=== PATIENT | female | born 1955 | race Caucasian/White ===

== ENCOUNTER 2018-01-23 22:49 | Emergency (ER) | payer BC, OTHER ==
[2018-01-23] MEDS ORDERED: GI Cocktail Oral Solution 30 ML PO ONE (23:06)
--- NOTE | 2018-01-23 23:09 | EDM.PDOC ---
ED HPI GENERAL MEDICAL PROBLEM - General Chief Complaint: Chest Pain Stated Complaint: PRESSURE IN CHEST [id number] Time Seen by Provider: 01/23/18 23:06 Source of Information: Reports: Patient History Limitations: Reports: No Limitations - History of Present Illness INITIAL COMMENTS - FREE TEXT/NARRATIVE: 2 weeks h/o mid sternal chest pain constant sometimes gets worse when moves wrong. been taking NTG without relief. 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: EKG Chest Pain Score (Numeric/FACES): 6 - Related Data Allergies Allergy/AdvReac Type Severity Reaction Status Date / Time erythromycin lactobionate Allergy swelling Verified 01/23/18 23:02 [From Erythrocin] of face, throat, lips or tongue/angioedema latex Allergy Rash Verified 01/23/18 23:02 naproxen sodium [From Aleve] Allergy short of Verified 01/23/18 23:02 breath/wheezing/chest tightness mold/mildew Allergy sneezing/co Uncoded 01/23/18 23:02 ngestion Home Meds: Home Meds Aspirin [Adult Low Dose Aspirin EC] 81 mg PO DAILY 05/14/14 [History] Fish Oil/DHA/EPA [Fish Oil 1,200 MG] 1 each PO BID 05/14/14 [History] Past Medical History Cardiovascular History: Reports: Hypertension, [place], Stents, Other (See Below) Other Cardiovascular History: coronary vsospasm 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 ED EXAM, GENERAL - Physical Exam Exam: See Below Exam Limited By: No Limitations General Appearance: Alert, WD/WN, Mild Distress, Other (distraught) Ears: Hearing Grossly Normal Throat/Mouth: Normal Voice, No Airway Compromise Head: Atraumatic Neck: Normal Inspection Respiratory/Chest: Lungs Clear Cardiovascular: Regular Rate, Rhythm GI/Abdominal: Soft, Non-Tender Neurological: Alert, Oriented, Normal Cognition, Normal Gait, No Motor/Sensory Deficits Psychiatric: Flat Affect Skin Exam: Warm, Dry, Normal Color Lymphatic: No Adenopathy Course - Vital Signs Last Recorded V/S: Last Vital Signs Temp 36.8 C 03/26/18 00:27 Pulse 62 01/24/18 00:27 Resp 18 01/24/18 00:27 BP 161/78 H 01/24/18 00:27 Pulse Ox 100 01/24/18 00:27 - Orders/Labs/Meds Orders: Active Orders 24 hr Category Date Time Status EKG 12 Lead [EKG Documentation Completion] [RC] URGENT Care 01/23/18 23:03 Active Nitroglycerin/D5W [Nitroglycerin 25 MG/D5W 250 ML] Med 01/23/18 23:30 Active 25 mg in 250 ml IV TITRATE Sodium Chloride 0.9% [Normal Saline] 250 ml Med 01/24/18 00:15 Active IV ASDIRECTED Medication Orders Nitroglycerin/Dextrose (Nitroglycerin 25 Mg/D5w 250 Ml) 25 mg in 250 mls @ 6 mls/hr IV TITRATE NERY; 10 MCG/MIN PRN Reason: Protocol Last Infusion: 01/24/18 00:01 Dose: 18 mcg/min, 10.8 mls/hr Infusion: 01/23/18 23:48 Dose: 15 mcg/min, 9 mls/hr Infusion: 01/23/18 23:33 Dose: 13 mcg/min, 7.8 mls/hr Admin: 01/23/18 23:24 Dose: 10 mcg/min, 6 mls/hr Sodium Chloride (Normal Saline) 250 mls @ 50 mls/hr IV ASDIRECTED NERY Last Admin: 01/24/18 00:12 Dose: 50 mls/hr Labs: Laboratory Tests 01/23/18 01/23/18 01/23/18 Range/Units 23:05 23:05 23:05 WBC 9.1 (5.0-10.0) 10^3/uL RBC 4.54 (4.2-5.4) 10^6/uL Hgb 14.1 D (12.0-16.0) g/dL Hct 41.3 (37.0-47.0) % MCV 91.0 (80-100) fL MCH 31.1 (27.0-34.0) pg MCHC 34.1 (33.0-35.0) g/dL Plt Count 381 (150-450) 10^3/uL Neut % (Auto) 45.2 (42.2-75.2) % Lymph % (Auto) 39.8 (20.5-50.1) % [place] % (Auto) 12.7 H (2-8) % Eos % (Auto) 1.8 (1.0-3.0) % Baso % (Auto) 0.5 (0.0-1.0) % D-Dimer, Quantitative 184 (0-400) ng/mL Sodium 137 (135-145) mmol/L Potassium 4.3 (3.6-5.0) mmol/L Chloride 103 (101-111) mmol/L Carbon Dioxide 26.0 (21.0-31.0) mmol/L Anion Gap 12.3 BUN 13 (7-18) mg/dL Creatinine 0.7 (0.6-1.3) mg/dL Est Cr Clr Drug Dosing 65.64 mL/min Estimated GFR (MDRD) > 60 BUN/Creatinine Ratio 18.57 Glucose 110 H (74-105) mg/dL Calcium 9.6 (8.4-10.2) mg/dl Total Bilirubin 0.3 (0.2-1.0) mg/dL AST 21 (10-42) IU/L ALT 19 (10-60) IU/L Alkaline Phosphatase 70 (42-121) IU/L Troponin I < 0.02 (0.00-0.02) ng/ml Total Protein 7.3 (6.7-8.2) g/dl Albumin 4.0 (3.2-5.5) g/dl Globulin 3.3 Albumin/Globulin Ratio 1.21 Meds: Medications Generic Name Dose Route Start Last Admin Trade Name Freq PRN Reason Stop Dose Admin Nitroglycerin/Dextrose 25 mg in 250 mls @ 6 mls/hr 01/23/18 23:30 01/24/18 00 :01 Nitroglycerin 25 Mg/D5w 250 Ml IV 18 mcg/min TITRATE NERY 10.8 mls/hr Protocol Infusion 10 MCG/MIN Sodium Chloride 250 mls @ 50 mls/hr 01/24/18 00:15 01/24/18 00:12 Normal Saline IV 50 mls/hr ASDIRECTED NERY Administration Discontinued Medications Generic Name Dose Route Start Last Admin Trade Name Freq PRN Reason Stop Dose Admin Al Hydroxide/Mg Hydroxide 30 ml 01/23/18 23:06 01/23/18 23:15 Gi Cocktail PO 01/23/18 23:07 30 ml ONETIME ONE Administration Clonidine HCl 0.1 mg 01/23/18 23:18 01/23/18 23:29 Catapres PO 01/23/18 23:19 Not Given ONETIME ONE Lorazepam 1 mg 01/24/18 00:15 01/24/18 00:19 Ativan IVPUSH 01/24/18 00:16 1 mg ONETIME ONE Administration Lorazepam 1 mg 01/24/18 00:33 Ativan IVPUSH 01/24/18 00:34 ONETIME ONE Morphine Sulfate 2 mg 01/23/18 23:52 01/23/18 23:58 Morphine IVPUSH 01/23/18 23:53 2 mg ONETIME ONE Administration Ondansetron HCl 4 mg 01/23/18 23:52 01/23/18 23:57 Zofran IV 01/23/18 23:53 4 mg ONETIME ONE Administration - Re-Assessments/Exams Free Text/Narrative Re-Assessment/Exam: 01/23/18 23:24 s/p GI cocktail = '0' states B-mattie causes profound slow HR. 01/23/18 23:53 results discussed with pt & spouse who states they were planning to call Dr Thakur tomorrow for appt' but unable to wait any longer since it's been 2 weeks now with her pain not responding to NTG. they have no answer on why they waited so long. 01/24/18 00:[address] Cruz who kindly accepted pt. Departure - Departure Time of Disposition: 00:38 Disposition: DC/Tfer to Acute Hospital 02 Reason for Transfer *Q: Other Condition: Fair Clinical Impression: Unstable angina Hypertension Qualifiers: Hypertension type: unspecified Qualified Code(s): I10 - Essential (primary) hypertension Forms: Interfacility Transfer EMTALA - My Orders Last 24 Hours: My Active Orders 01/23/18 23:03 EKG 12 Lead [EKG Documentation Completion] [RC] URGENT 01/23/18 23:30 Nitroglycerin/D5W [Nitroglycerin 25 MG/D5W 250 ML] 25 mg in 250 ml IV TITRATE 01/24/18 00:15 Sodium Chloride 0.9% [Normal Saline] 250 ml IV ASDIRECTED - Assessment/Plan Last 24 Hours: My Active Orders 01/23/18 23:03 EKG 12 Lead [EKG Documentation Completion] [RC] URGENT 01/23/18 23:30 Nitroglycerin/D5W [Nitroglycerin 25 MG/D5W 250 ML] 25 mg in 250 ml IV TITRATE 01/24/18 00:15 Sodium Chloride 0.9% [Normal Saline] 250 ml IV ASDIRECTED
[2018-01-23] MEDS ORDERED: cloNIDine 0.1 MG Tab PO ONE (23:18)
[2018-01-23 23:30] LABS: CHLORIDE,CL 103 mmol/L (101-111); SODIUM,NA 137 mmol/L (135-145)
[2018-01-23] MEDS ORDERED: Nitroglycerin/D5W 25 MG/250 ML BOTTLE IV SCH (23:30)
[2018-01-23] MEDS ORDERED: Morphine 2 MG/ML Syringe IVPUSH ONE (23:52)
[2018-01-23] MEDS ORDERED: Ondansetron 4 MG/2 ML SDV IV ONE (23:52)
[2018-01-24] MEDS ORDERED: LORazepam 2 MG/ML Syringe IVPUSH ONE ×2 (00:15→00:33)
[2018-01-24] MEDS ORDERED: Sodium Chloride 0.9% 250 ML IV SCH (00:15)
[2018-01-24 01:05] VITALS: BP 130/67
--- NOTE | 2018-01-24 17:25 | EKG ---
01/23/2018 - MYRTLE [facility] - FINDINGS: EKG shows normal sinus rhythm with rate of 63 per minute. There is a Q wave in the anterior lead, suggestive of prior infarct. [facility] /[id number]
== END 2018-01-24 01:20 ==
LOC: DL.ED 22:49
DX: I20.0 Unstable angina (principal); I10 Essential (primary) hypertension; I25.2 Old myocardial infarction; Z88.1 Allergy status to other antibiotic agents; Z91.040 Latex allergy status; Z88.6 Allergy status to analgesic agent; Z91.048 Other nonmedicinal substance allergy status; Z79.82 Long term (current) use of aspirin
CPT/HCPCS: 36415; 71045; 80053; 84484; 85025; 85379; 93005; 96365; 96366; 96375; 99285; A9270-GY; J2060; J2270; J2405; J7050

== ENCOUNTER 2021-02-23 10:03 | Observation (INO) | payer MEDICARE, BC ==
[2021-02-23 10:55] LABS: CHLORIDE,CL 99 mmol/L (98-107); SODIUM,NA 135 mmol/L (136-145)
--- NOTE | 2021-02-23 11:50 | CR ---
PROCEDURE INFORMATION: Exam: XR Chest Exam date and time: 02/23/2021 11:06 AM Age: 65 years old Clinical indication: Chest pain TECHNIQUE: Imaging protocol: XR of the chest. Views: 1 view. COMPARISON: No relevant prior studies available. FINDINGS: Lungs: Unremarkable. No consolidation. Pleural spaces: Unremarkable. No pleural effusion. No pneumothorax. Heart/Mediastinum: Unremarkable. No cardiomegaly. Bones/joints: Unremarkable. IMPRESSION: No acute findings.
--- NOTE | 2021-02-23 12:20 | EDM.PDOC ---
Scribed by Chrissie Perez 02/23/21 1220 for Vero Alvarez NP ED HPI GENERAL MEDICAL PROBLEM - General Chief Complaint: Chest Pain Stated Complaint: HEART MONITOR ISSUES Time Seen by Provider: 02/23/21 10:19 Source of Information: Reports: Patient, RN, RN Notes Reviewed History Limitations: Reports: No Limitations - History of Present Illness INITIAL COMMENTS - FREE TEXT/NARRATIVE: Patient is a 65-year-old female who presenst to ER with complaint of chest pressure that began last week of December. States she took 3 nitro prior to arrival at ER with no relief. Patient states feeling of pounding in her chest, arms are weak, and lightheaded this morning. History of myocardial infarction in 2006. History of Prinzmetal angina, episodes happening several times a day. She has shortness of breath, chest pressure and lightheaded. No alcohol or smoking. Patient takes Lorsartan starting February 21 for blood pressure. Nitro PRN, aspirin 81mg and medical marijuana--sublingual for fibromyalgia PRN, none for days. Onset: Gradual Duration: Constant Location: Reports: Chest Quality: Reports: Ache Severity: Severe Improves with: Reports: None Worsens with: Reports: None Associated Symptoms: Reports: No Other Symptoms - Related Data Allergies Allergy/AdvReac Type Severity Reaction Status Date / Time erythromycin lactobionate Allergy swelling Verified 02/23/21 10:17 [From Erythrocin] of face, throat, lips or tongue/angioedema latex Allergy Rash Verified 02/23/21 10:17 naproxen sodium [From Aleve] Allergy short of Verified 02/23/21 10:17 breath/wheezing/chest tightness mold/mildew Allergy sneezing/co Uncoded 02/23/21 10:17 ngestion Home Meds: Home Meds Aspirin [Adult Low Dose Aspirin EC] 81 mg PO DAILY 05/14/14 [History] Fish Oil/DHA/EPA [Fish Oil 1,200 MG] 1 each PO BID 05/14/14 [History] Losartan Potassium 25 mg PO DAILY 02/23/21 [History] Medical Supply, Miscellaneous [Liqua Spen] 1 drop SL ASDIRECTED PRN 02/23/21 [History] Nitroglycerin [Nitrostat] 0.4 mg SL ASDIRECTED PRN 02/23/21 [History] Past Medical History Cardiovascular History: Reports: Hypertension, [place], Stents, Other (See Below) Other Cardiovascular History: coronary vsospasm 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 Brother has apacemaker. - Caffeine Use Caffeine Use: Reports: Coffee ED ROS GENERAL - Review of Systems Review Of Systems: Comprehensive ROS is negative, except as noted in HPI. ED EXAM, GENERAL - Physical Exam Exam: See Below Exam Limited By: No Limitations General Appearance: Anxious, Other (thin) Eye Exam: Bilateral Eye: EOMI, Normal Inspection, PERRL Ears: Normal External Exam, Normal Canal, Hearing Grossly Normal, Normal TMs Nose: Normal Inspection, Normal Mucosa, No Blood Throat/Mouth: Normal Inspection, Normal Lips, Normal Teeth, Normal Gums, Normal Oropharynx, Normal Voice, No Airway Compromise Head: Atraumatic, Normocephalic Neck: Normal Inspection, Supple, Non-Tender, Full Range of Motion Respiratory/Chest: No Respiratory Distress, Lungs Clear, Normal Breath Sounds, No Accessory Muscle Use, Chest Non-Tender Cardiovascular: Bradycardia GI/Abdominal: Normal Bowel Sounds, Soft, Non-Tender, No Organomegaly, No Distention, No Abnormal Bruit, No Mass (Female) Exam: Deferred Rectal (Female) Exam: Deferred Back Exam: Normal Inspection, Full Range of Motion, NT Extremities: Normal Inspection, Normal Range of Motion, Non-Tender, Normal Capillary Refill, No Pedal Edema Neurological: Alert, Oriented, CN II-XII Intact, Normal Cognition, Normal Gait, Normal Reflexes, No Motor/Sensory Deficits Psychiatric: Normal Affect, Normal Mood Skin Exam: Warm, Dry, Intact, Normal Color, No Rash Lymphatic: No Adenopathy #1 Interpretation EKG Date: 02/23/21 Time: 10:17 Rhythm: Other (sinus bradycardia) Rate (Beats/Min): 49 [place]: Normal P-Wave: Present QRS: Normal ST-T: Normal QT: Normal Course - Vital Signs Last Recorded V/S: Last Vital Signs Temp 97.8 F 02/23/21 10:19 Pulse 64 02/23/21 10:19 Resp 17 02/23/21 10:19 BP 149/69 H 02/23/21 10:19 Pulse Ox 100 02/23/21 10:19 - Orders/Labs/Meds Orders: Active Orders 24 hr Category Date Time Status EKG Documentation Completion [RC] STAT Care 02/23/21 10:15 Active CORONAVIRUS COVID-19 MATT [MOLEC] Stat Lab 02/23/21 11:37 Received UA W/VENKAT RFLX IF INDICATED [URIN] Stat Lab 02/23/21 10:16 Ordered Labs: Laboratory Tests 02/23/21 02/23/21 02/23/21 Range/Units 10:29 10:29 10:29 WBC 6.5 (5.0-10.0) 10^3/uL RBC 4.68 (4.2-5.4) 10^6/uL Hgb 14.6 (12.0-16.0) g/dL Hct 43.2 (37.0-47.0) % MCV 92.3 (80-100) fL MCH 31.2 (27.0-34.0) pg MCHC 33.8 (33.0-35.0) g/dL Plt Count 386 (150-450) 10^3/uL Neut % (Auto) 52.6 (42.2-75.2) % Lymph % (Auto) 29.7 (20.5-50.1) % [place] % (Auto) 14.8 H (2-8) % Eos % (Auto) 2.0 (1.0-3.0) % Baso % (Auto) 0.9 (0.0-1.0) % PT 10.4 (9.0-12.0) SEC INR 1.0 (0.9-1.2) D-Dimer, Quantitative 136 (0-400) ng/mL Sodium 135 L (136-145) mmol/L Potassium 4.0 (3.5-5.1) mmol/L Chloride 99 (98-107) mmol/L Carbon Dioxide 26 (21-32) mmol/L Anion Gap 14.0 H (7-13) mEq/L BUN 10 (7-18) mg/dL Creatinine 0.82 (0.55-1.02) mg/dL Est Cr Clr Drug Dosing 54.00 mL/min Estimated GFR (MDRD) > 60 BUN/Creatinine Ratio 12.2 (No establ ref range) Glucose 102 H (70-99) mg/dL Calcium 8.8 (8.5-10.1) mg/dL Total Bilirubin 0.6 (0.2-1.0) mg/dL AST 18 (15-37) U/L ALT 26 (14-59) U/L Alkaline Phosphatase 70 (46-116) U/L Troponin I 0.083 H* (0.000-0.056) ng/mL Total Protein 6.5 (6.4-8.2) g/dL Albumin 3.5 (3.4-5.0) g/dL Globulin 3.0 Albumin/Globulin Ratio 1.2 - Radiology Interpretation Free Text/Narrative:: Chest xray: PROCEDURE INFORMATION: Exam: XR Chest Exam date and time: 02/23/2021 11:06 AM Age: 65 years old Clinical indication: Chest pain TECHNIQUE: Imaging protocol: XR of the chest. Views: 1 view. COMPARISON: No relevant prior studies available. FINDINGS: Lungs: Unremarkable. No consolidation. Pleural spaces: Unremarkable. No pleural effusion. No pneumothorax. Heart/Mediastinum: Unremarkable. No cardiomegaly. Bones/joints: Unremarkable. IMPRESSION: No acute findings. Thank you for allowing us to participate in the care of your patient. Dictated and Authenticated by: Bela Mason MD 02/23/2021 11:50 AM Central Time ([place] & [place]) See rad report - Re-Assessments/Exams Free Text/Narrative Re-Assessment/Exam: 02/23/21 12:18 Discussed patient case with Dr. Castillo in Cardiology at [facility]. He states there is no change in EKG from today compared with 2018. He states the patient can be monitored and medically managed here at this time. Discussed patient case with Dr. Kapoor who agreed to admit the patient for observation admission. Departure - Departure Time of Disposition: 12:19 Disposition: Refer to Observation Reason for Transfer *Q: Other Condition: Good Clinical Impression: Chest pain, rule out acute myocardial infarction Forms: ED Department Discharge Sepsis Event Note (ED) - Focused Exam Vital Signs: Vital Signs Temp Pulse Resp BP Pulse Ox 02/23/21 10:19 97.8 F 64 17 149/69 H 100 - My Orders Last 24 Hours: My Active Orders 02/23/21 10:15 EKG Documentation Completion [RC] STAT 02/23/21 10:16 UA W/VENKAT RFLX IF INDICATED [URIN] Stat 02/23/21 11:37 CORONAVIRUS COVID-19 MATT [MOLEC] Stat - Assessment/Plan Last 24 Hours: My Active Orders 02/23/21 10:15 EKG Documentation Completion [RC] STAT 02/23/21 10:16 UA W/VENKAT RFLX IF INDICATED [URIN] Stat 02/23/21 11:37 CORONAVIRUS COVID-19 MATT [MOLEC] Stat I have read and agree with the documentation that has been completed regarding this visit. By signing this record, I attest that the documentation was completed in my physical presence and is an accurate record of the encounter.
[2021-02-23] MEDS ORDERED: Ibuprofen 400 MG Tab PO PRN (12:27)
[2021-02-23] MEDS ORDERED: Acetaminophen 325 MG Tab PO PRN (12:27)
[2021-02-23] MEDS ORDERED: Ondansetron 4 MG Tab.DIS PO PRN (12:27)
--- NOTE | 2021-02-23 13:03 | PCM.HP ---
H&P History of Present Illness - General Date of Service: 02/23/21 Admit Problem/Dx: Admission Diagnosis/Problem Admission Diagnosis/Problem Chest pain in adult - History of Present Illness Initial Comments - Free Text/Narative: Melinda is a 65-year-old woman who presented to the ER this morning with recurrent chest pain. She has a history of fairly severe Prinzmetal's angina. She had a myocardial infarction back in 2006, angiogram at that time did not find any blockage of her coronary arteries. 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 She has been evaluated recently by her payroll benefits clerk in [place], who was concerned that her worsening hypertension was leading to worsening of her angina. He started her on losartan 25 mg daily. She states that over the last week or so, symptoms have been recurrent and getting worse. She states that this morning, the symptoms were to the point where she was having fatigue, felt like "my shoulders were heavy", and tells me that her symptoms this morning were very similar to 2006 when she had her RI. Of note, Melinda also has a history of peripheral vascular disease, has had her right iliac artery stented in the past. - Related Data Allergies/Adverse Reactions: Allergies Allergy/AdvReac Type Severity Reaction Status Date / Time erythromycin lactobionate Allergy swelling Verified 02/23/21 12:38 [From Erythrocin] of face, throat, lips or tongue/angioedema latex Allergy Rash Verified 02/23/21 12:38 naproxen sodium [From Aleve] Allergy short of Verified 02/23/21 12:38 breath/wheezing/chest tightness mold/mildew Allergy sneezing/co Uncoded 02/23/21 10:17 ngestion Home Medications: Home Meds Aspirin [Adult Low Dose Aspirin EC] 81 mg PO DAILY 05/14/14 [History] Losartan Potassium 25 mg PO DAILY 02/23/21 [History] Medical Supply, Miscellaneous [Liqua Spen] 1 drop SL ASDIRECTED PRN 02/23/21 [History] Nitroglycerin [Nitrostat] 0.4 mg SL ASDIRECTED PRN 02/23/21 [History] Past Medical History HEENT History: Reports: None Cardiovascular History: Reports: Hypertension, PVD, Other (See Below) Other Cardiovascular History: Prinzmetal's angina, peripheral artery disease /atherosclerosis with stenting of right iliac artery Respiratory History: Reports: None Gastrointestinal History: Reports: None Genitourinary History: Reports: None [employer] History: Reports: : 3 Para: 3 ([id number]) Musculoskeletal History: Reports: Arthritis, Back Pain, Chronic, Fibromyalgia Neurological History: Reports: None Psychiatric History: Reports: None Endocrine/Metabolic History: Reports: None Hematologic History: Reports: None Immunologic History: Reports: None Oncologic (Cancer) History: Reports: None Dermatologic History: Reports: None - Infectious Disease History Infectious Disease History: Reports: None - Past Surgical History Head Surgeries/Procedures: Reports: None Social & Family History - Family History Family Medical History: No Pertinent Family History Cardiac: Reports: RI, Other (See Below) Other Cardiac Family History: Dad at age 42. Brother has apacemaker. Other Family History: Has 3 children and 3 grandchildren - Tobacco Use Tobacco Use Status *Q: Never Tobacco User - Caffeine Use Caffeine Use: Reports: Coffee - Recreational Drug Use Recreational Drug Use: Yes Drug Use in Last 12 Months: Yes Recreational Drug Type: Reports: Marijuana/Hashish Recreational Drug Use Frequency: Daily H&P Review of Systems - Review of Systems: Review Of Systems: See Below Review of Systems Comment:: General: No recent weight gain or weight loss, no fevers or chills HEENT: No headache or vertigo, no difficulty with speaking or swallowing Cardiovascular: See HPI Respiratory: No chronic cough, no dyspnea or dyspnea on exertion Gastrointestinal: No nausea or vomiting, no diarrhea or constipation, no h ematochezia or melena Endocrine: No abnormal rashing or bruising, no intolerance to heat or cold Integumentary: No lesions or rashes Musculoskeletal: No myalgias or arthralgias Psychological: No increased anxiety or depressive type symptoms Rest of the review of systems is complete and negative Exam - Exam Exam: See Below - Vital Signs Vital Signs: Last Vital Signs Temp 98.6 F 02/23/21 12:37 Pulse 62 02/23/21 12:37 Resp 20 02/23/21 12:37 BP 182/85 H 02/23/21 12:37 Pulse Ox 98 02/23/21 12:37 Weight: 107 lb 12.8 oz - Exam Physical Exam Comments:: General: Melinda is a 65-year-old woman in no acute distress. She states that the chest pain still is intermittent at this time Oropharynx is clear, mucous membranes are moist Heart: Regular rate and rhythm, no murmurs Lungs: Clear to auscultation throughout Neck: Supple, no elevated JVD Neurological: Cranial nerves II through XII are intact, reflexes 2+ throughout, toes downward going - Patient Data Lab Results Last 24 hrs: Laboratory Results - last 24 hr 02/23/21 02/23/21 02/23/21 Range/Units 10:29 10:29 10:29 WBC 6.5 (5.0-10.0) 10^3/uL RBC 4.68 (4.2-5.4) 10^6/uL Hgb 14.6 (12.0-16.0) g/dL Hct 43.2 (37.0-47.0) % MCV 92.3 (80-100) fL MCH 31.2 (27.0-34.0) pg MCHC 33.8 (33.0-35.0) g/dL Plt Count 386 (150-450) 10^3/uL Neut % (Auto) 52.6 (42.2-75.2) % Lymph % (Auto) 29.7 (20.5-50.1) % [place] % (Auto) 14.8 H (2-8) % Eos % (Auto) 2.0 (1.0-3.0) % Baso % (Auto) 0.9 (0.0-1.0) % PT 10.4 (9.0-12.0) SEC INR 1.0 (0.9-1.2) D-Dimer, Quantitative 136 (0-400) ng/mL Sodium 135 L (136-145) mmol/L Potassium 4.0 (3.5-5.1) mmol/L Chloride 99 (98-107) mmol/L Carbon Dioxide 26 (21-32) mmol/L Anion Gap 14.0 H (7-13) mEq/L BUN 10 (7-18) mg/dL Creatinine 0.82 (0.55-1.02) mg/dL Est Cr Clr Drug Dosing 54.00 mL/min Estimated GFR (MDRD) > 60 BUN/Creatinine Ratio 12.2 (No establ ref range) Glucose 102 H (70-99) mg/dL Calcium 8.8 (8.5-10.1) mg/dL Total Bilirubin 0.6 (0.2-1.0) mg/dL AST 18 (15-37) U/L ALT 26 (14-59) U/L Alkaline Phosphatase 70 (46-116) U/L Troponin I 0.083 H* (0.000-0.056) ng/mL Total Protein 6.5 (6.4-8.2) g/dL Albumin 3.5 (3.4-5.0) g/dL Globulin 3.0 Albumin/Globulin Ratio 1.2 SARS-CoV-2 RNA (MATT) (NEGATIVE) 02/23/21 Range/Units 11:37 WBC (5.0-10.0) 10^3/uL RBC (4.2-5.4) 10^6/uL Hgb (12.0-16.0) g/dL Hct (37.0-47.0) % MCV (80-100) fL MCH (27.0-34.0) pg MCHC (33.0-35.0) g/dL Plt Count (150-450) 10^3/uL Neut % (Auto) (42.2-75.2) % Lymph % (Auto) (20.5-50.1) % [place] % (Auto) (2-8) % Eos % (Auto) (1.0-3.0) % Baso % (Auto) (0.0-1.0) % PT (9.0-12.0) SEC INR (0.9-1.2) D-Dimer, Quantitative (0-400) ng/mL Sodium (136-145) mmol/L Potassium (3.5-5.1) mmol/L Chloride (98-107) mmol/L Carbon Dioxide (21-32) mmol/L Anion Gap (7-13) mEq/L BUN (7-18) mg/dL Creatinine (0.55-1.02) mg/dL Est Cr Clr Drug Dosing mL/min Estimated GFR (MDRD) BUN/Creatinine Ratio (No establ ref range) Glucose (70-99) mg/dL Calcium (8.5-10.1) mg/dL Total Bilirubin (0.2-1.0) mg/dL AST (15-37) U/L ALT (14-59) U/L Alkaline Phosphatase (46-116) U/L Troponin I (0.000-0.056) ng/mL Total Protein (6.4-8.2) g/dL Albumin (3.4-5.0) g/dL Globulin Albumin/Globulin Ratio SARS-CoV-2 RNA (MATT) Negative (NEGATIVE) Result Diagrams: 02/23/21 10:29 02/23/21 10:29 *Q Meaningful Use (ADM) - VTE *Q VTE Anticoagulation Contraindications: Med/TX Not Indicated/Need - VTE Risk Assess *Q Each Risk Factor Represents 2 Points: Age 60 - 74 Years Total Score 2 Point Risk Factors: 2 - Problem List (1) Prinzmetal's angina SNOMED Code(s): 21551040 ICD Code: I20.1 - ANGINA PECTORIS WITH DOCUMENTED SPASM Status: Chronic Priority: High Current Visit: Yes Onset Date: ~2006 (2) Chest pain, rule out acute myocardial infarction SNOMED Code(s): 74801802 ICD Code: R07.9 - CHEST PAIN, UNSPECIFIED Status: Acute Priority: High Current Visit: Yes Onset Date: ~02/23/21 (3) Hypertension SNOMED Code(s): 75346806 ICD Code: I10 - ESSENTIAL (PRIMARY) HYPERTENSION Status: Chronic Current Visit: Yes Onset Date: ~2006 Qualifiers: Hypertension type: essential hypertension Qualified Code(s): I10 - Essential (primary) hypertension Problem List Initiated/Reviewed/Updated: Yes Orders Last 24hrs: Active Orders 24 hr Category Date Time Status Admission Diagnosis [ADT] Routine ADT 02/23/21 12:19 Ordered Patient Status [ADT] Routine ADT 02/23/21 12:19 Active Cardiac Monitoring [RC] CONTINUOUS Care 02/23/21 12:28 Ordered EKG Documentation Completion [RC] AM Care 02/24/21 08:00 Ordered Oxygen Therapy [RC] PRN Care 02/23/21 12:27 Ordered Up ad Ana [RC] ASDIRECTED Care 02/23/21 12:27 Ordered VTE/DVT Education [RC] PER UNIT ROUTINE Care 02/23/21 12:27 Ordered Vital Signs [RC] Q4H Care 02/23/21 12:27 Ordered Regular Diet [DIET] Diet 02/23/21 Dinner Ordered TROPONIN I [CHEM] Q6H Lab 02/23/21 16:30 Ordered TROPONIN I [CHEM] Q6H Lab 02/23/21 22:30 Ordered UA W/VENKAT RFLX IF INDICATED [URIN] Stat Lab 02/23/21 10:16 Ordered Acetaminophen [TylenoL] Med 02/23/21 12:27 Ordered 650 mg PO Q4H PRN Aspirin [Halfprin] Med 02/24/21 09:00 Ordered 81 mg PO DAILY Ibuprofen [Motrin] Med 02/23/21 12:27 Ordered 400 mg PO Q6H PRN Losartan [Cozaar] Med 02/24/21 09:00 Ordered 25 mg PO DAILY NIFEdipine [Procardia XL] Med 02/23/21 21:00 Ordered 30 mg PO BEDTIME Ondansetron [Zofran ODT] Med 02/23/21 12:27 Ordered 4 mg PO Q6H PRN Resuscitation Status Routine Resus Stat 02/23/21 12:27 Ordered Medication Orders Acetaminophen (Acetaminophen 325 Mg Tab) 650 mg PO Q4H PRN PRN Reason: Pain (Mild 1-3)/fever Aspirin (Aspirin 81 Mg Tab.Ec) 81 mg PO DAILY NERY Ibuprofen (Ibuprofen 400 Mg Tab) 400 mg PO Q6H PRN PRN Reason: Pain (mild 1-3) Losartan Potassium (Losartan 25 Mg Tab) 25 mg PO DAILY NERY Nifedipine (Nifedipine 30 Mg Tab.Er) 30 mg PO BEDTIME NERY Ondansetron HCl (Ondansetron 4 Mg Tab.Dis) 4 mg PO Q6H PRN PRN Reason: nausea, able to take PO Assessment/Plan Comment:: Assessment: 1. 65-year-old woman with history of Prinzmetal's angina, with worsening ang inal symptoms 2. Essential hypertension 3. Peripheral artery disease, with history of stenting of right iliac artery Plan: 1. She has been having worsening symptoms for several days now, and her t roponin is barely elevated past normal. However, with the patient reporting that her symptoms are now similar to her symptoms she experienced during her previous RI, overnight rule out of RI is appropriate. 2. Troponin every 6 hours x2 additional values 3. Repeat EKG in the a.m. 4. She does not remember ever being tried on a dihydropyridine calcium mattie in the past, it would be worthwhile to try her on nifedipine and see if it helps reduce the vasospasm symptoms that she is having. I will therefore start her on nifedipine 30 mg extended release tonight and see how that helps with her. 5. She has a Zio patch already placed by her payroll benefits clerk, we will leave that in place 6. Anticipate discharge home in the a.m. after RI rule out 7. Pharmacological VTE prophylaxis not needed, early ambulation is appropriate
[2021-02-23] MEDS ORDERED: NIFEdipine 30 MG Tab.ER PO SCH (21:00)
[2021-02-24 08:04] VITALS: BP 125/68; PULSE 57
--- NOTE | 2021-02-24 08:06 | PCM.DCSUM1 ---
Discharge Summary - Hospital Course Free Text/Narrative:: Melinda is a 65-year-old woman with history of Prinzmetal's angina who was admitted yesterday with chest pain that she was concerned seemed very similar to her OH of several years ago. She did quite well overnight, she received a dose of 30 mg of oral nifedipine, which seemed to help significantly with her pain. She has done well this morning with activity. Her troponin decreased slightly with her second value, and did not significantly change with her third. She has follow-up already scheduled with her lan analyst in the next 2 weeks, she will be mailing in her Zio patch which she has in place currently and getting follow-up at that time - Discharge Data Discharge Date: 02/24/21 Discharge Disposition: Home, Self-Care 01 Condition: Good - Referral to Home Health Primary Care Physician: Pawel Whyte MD - Discharge Diagnosis/Problem(s) (1) Prinzmetal's angina SNOMED Code(s): 94246159 ICD Code: I20.1 - ANGINA PECTORIS WITH DOCUMENTED SPASM Status: Chronic Priority: High Onset Date: ~2006 (2) Chest pain, rule out acute myocardial infarction SNOMED Code(s): 74169677 ICD Code: R07.9 - CHEST PAIN, UNSPECIFIED Status: Acute Priority: High Onset Date: ~02/23/21 (3) Hypertension SNOMED Code(s): 70587659 ICD Code: I10 - ESSENTIAL (PRIMARY) HYPERTENSION Status: Chronic Onset Date: ~2006 Qualifiers: Hypertension type: essential hypertension Qualified Code(s): I10 - Essential (primary) hypertension - Discharge Plan *PRESCRIPTION DRUG MONITORING PROGRAM REVIEWED*: Not Applicable *COPY OF PRESCRIPTION DRUG MONITORING REPORT IN PATIENT JONAH: Not Applicable Prescriptions/Med Rec: NIFEdipine [Procardia XL] 30 mg PO BEDTIME 30 Days #30 tab.er Home Medications: Home Meds Aspirin [Adult Low Dose Aspirin EC] 81 mg PO DAILY 05/14/14 [History] Losartan Potassium 25 mg PO DAILY 02/23/21 [History] Medical Supply, Miscellaneous [Liqua Spen] 1 drop SL ASDIRECTED PRN 02/23/21 [History] Nitroglycerin [Nitrostat] 0.4 mg SL ASDIRECTED PRN 02/23/21 [History] NIFEdipine [Procardia XL] 30 mg PO BEDTIME 30 Days #30 tab.er 04/26/21 [Rx] Patient Handouts: Nonspecific Chest Pain, Adult Referrals: Nagi Hampton MD [Physician] - - Discharge Summary/Plan Comment DC Time >30 min.: No Discharge Summary/Plan Comment: Discharge diagnosis: 1. 65-year-old woman with history of OH in 2006, with clear angiograms x3 since then, the last being in 2016 2. 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 I am hopeful that this will help the coronary artery spasm that is causing her significant chest pain. As noted above, she has close follow-up already scheduled with lan analyst, who will review her Zio patch telemetry and come up with a further treatment plan for her. She will of course return to the ER if the chest pain worsens or if she has any other concerns. - Patient Data Vitals - Most Recent: Last Vital Signs Temp 98.2 F 02/24/21 08:04 Pulse 57 L 02/24/21 08:04 Resp 20 02/24/21 08:04 BP 125/68 02/24/21 08:04 Pulse Ox 97 02/24/21 08:04 Weight - Most Recent: 107 lb 12.8 oz I&O - Last 24 hours: Intake & Output 02/23/21 02/24/21 02/24/21 22:59 06:59 14:59 Intake Total 660 400 Balance 660 400 Lab Results - Last 24 hrs: Laboratory Results - last 24 hr 02/23/21 02/23/21 02/23/21 Range/Units 10:29 10:29 10:29 WBC 6.5 (5.0-10.0) 10^3/uL RBC 4.68 (4.2-5.4) 10^6/uL Hgb 14.6 (12.0-16.0) g/dL Hct 43.2 (37.0-47.0) % MCV 92.3 (80-100) fL MCH 31.2 (27.0-34.0) pg MCHC 33.8 (33.0-35.0) g/dL Plt Count 386 (150-450) 10^3/uL Neut % (Auto) 52.6 (42.2-75.2) % Lymph % (Auto) 29.7 (20.5-50.1) % [place] % (Auto) 14.8 H (2-8) % Eos % (Auto) 2.0 (1.0-3.0) % Baso % (Auto) 0.9 (0.0-1.0) % PT 10.4 (9.0-12.0) SEC INR 1.0 (0.9-1.2) D-Dimer, Quantitative 136 (0-400) ng/mL Sodium 135 L (136-145) mmol/L Potassium 4.0 (3.5-5.1) mmol/L Chloride 99 (98-107) mmol/L Carbon Dioxide 26 (21-32) mmol/L Anion Gap 14.0 H (7-13) mEq/L BUN 10 (7-18) mg/dL Creatinine 0.82 (0.55-1.02) mg/dL Est Cr Clr Drug Dosing 54.00 mL/min Estimated GFR (MDRD) > 60 BUN/Creatinine Ratio 12.2 (No establ ref range) Glucose 102 H (70-99) mg/dL Calcium 8.8 (8.5-10.1) mg/dL Total Bilirubin 0.6 (0.2-1.0) mg/dL AST 18 (15-37) U/L ALT 26 (14-59) U/L Alkaline Phosphatase 70 (46-116) U/L Troponin I 0.083 H* (0.000-0.056) ng/mL Total Protein 6.5 (6.4-8.2) g/dL Albumin 3.5 (3.4-5.0) g/dL Globulin 3.0 Albumin/Globulin Ratio 1.2 SARS-CoV-2 RNA (MATT) (NEGATIVE) 02/23/21 02/23/21 02/23/21 Range/Units 11:37 16:30 22:27 WBC (5.0-10.0) 10^3/uL RBC (4.2-5.4) 10^6/uL Hgb (12.0-16.0) g/dL Hct (37.0-47.0) % MCV (80-100) fL MCH (27.0-34.0) pg MCHC (33.0-35.0) g/dL Plt Count (150-450) 10^3/uL Neut % (Auto) (42.2-75.2) % Lymph % (Auto) (20.5-50.1) % [place] % (Auto) (2-8) % Eos % (Auto) (1.0-3.0) % Baso % (Auto) (0.0-1.0) % PT (9.0-12.0) SEC INR (0.9-1.2) D-Dimer, Quantitative (0-400) ng/mL Sodium (136-145) mmol/L Potassium (3.5-5.1) mmol/L Chloride (98-107) mmol/L Carbon Dioxide (21-32) mmol/L Anion Gap (7-13) mEq/L BUN (7-18) mg/dL Creatinine (0.55-1.02) mg/dL Est Cr Clr Drug Dosing mL/min Estimated GFR (MDRD) BUN/Creatinine Ratio (No establ ref range) Glucose (70-99) mg/dL Calcium (8.5-10.1) mg/dL Total Bilirubin (0.2-1.0) mg/dL AST (15-37) U/L ALT (14-59) U/L Alkaline Phosphatase (46-116) U/L Troponin I 0.065 H* 0.066 H* (0.000-0.056) ng/mL Total Protein (6.4-8.2) g/dL Albumin (3.4-5.0) g/dL Globulin Albumin/Globulin Ratio SARS-CoV-2 RNA (MATT) Negative (NEGATIVE) Med Orders - Current: Current Medications Acetaminophen (Acetaminophen 325 Mg Tab) 650 mg PO Q4H PRN PRN Reason: Pain (Mild 1-3)/fever Aspirin (Aspirin 81 Mg Tab.Ec) 81 mg PO DAILY NERY Ibuprofen (Ibuprofen 400 Mg Tab) 400 mg PO Q6H PRN PRN Reason: Pain (mild 1-3) Last Admin: 02/23/21 21:00 Dose: 400 mg Documented by: Losartan Potassium (Losartan 25 Mg Tab) 25 mg PO DAILY NERY Nifedipine (Nifedipine 30 Mg Tab.Er) 30 mg PO BEDTIME NERY Last Admin: 02/23/21 20:56 Dose: 30 mg Documented by: Ondansetron HCl (Ondansetron 4 Mg Tab.Dis) 4 mg PO Q6H PRN PRN Reason: nausea, able to take PO *Q Meaningful Use (DIS) - VTE *Q VTE Anticoagulation Contraindications: Med/TX Not Indicated/Need
[2021-02-24] MEDS ORDERED: Losartan 25 MG Tab PO SCH (09:00)
[2021-02-24] MEDS ORDERED: Aspirin 81 MG Tab.EC PO SCH (09:00)
== END 2021-02-24 08:35 | disposition home or self-care (01) ==
LOC: DL.ED 10:03 → DL.MS 12:19
PROVIDERS: ADMIT Family Medicine; ATTEND Family Medicine
DX: R07.89 Other chest pain (principal); R53.1 Weakness; R06.02 Shortness of breath; R42 Dizziness and giddiness; I10 Essential (primary) hypertension; I25.2 Old myocardial infarction; I73.9 Peripheral vascular disease, unspecified; Z20.822 Contact with and (suspected) exposure to COVID-19; Z88.8 Allergy status to other drugs, medicaments and biological substances; Z91.040 Latex allergy status; Z91.09 Other allergy status, other than to drugs and biological substances; Z79.82 Long term (current) use of aspirin; Z95.828 Presence of other vascular implants and grafts
CPT/HCPCS: 36415; 71045; 80053; 84484; 85025; 85379; 85610; 93005; 93010; 99284; A9270; G0378; U0002; 99285-25

== ENCOUNTER 2021-04-26 11:21 | Emergency (ER) | payer MEDICARE, BC ==
[2021-04-26 11:48] VITALS: BP 183/90; PULSE 88
--- NOTE | 2021-04-26 12:06 | EDM.PDOC ---
ED HPI GENERAL MEDICAL PROBLEM - General Chief Complaint: Chest Pain Stated Complaint: HEART ATTACK Time Seen by Provider: 04/26/21 11:50 Source of Information: Reports: Patient, Old Records, RN, RN Notes Reviewed History Limitations: Reports: No Limitations - History of Present Illness INITIAL COMMENTS - FREE TEXT/NARRATIVE: Melinda is a 65 y/o female who presents to the ED via personal vehicle for complaints of chest pain. The patient attests to a history of STEMI and arrhythmia ranging from SVT and bradycardia. She follows with Dr. Thakur and Dr. Hodges for cardiology and electrophysiology at [facility] with appointments scheduled for two weeks from now; she is awaiting results from a 14-day ZioPatch. The patient denies recent illness, fever, shaking chills, vision changes, cough, sore throat, shortness of breath, nausea, vomiting, or diarrhea. She does note transient palpations. The patient characterizes her chest pain as a dull ache that she rates at a 4/10. She does not take any medication for HTN as she has developed significant hypotension with previous low-dose beta blockers, calcium channel blockers, and carol inhibitors. Right Chest Pain Score (Numeric/FACES): 4 - Related Data Allergies Allergy/AdvReac Type Severity Reaction Status Date / Time erythromycin lactobionate Allergy swelling Verified 04/26/21 11:42 [From Erythrocin] of face, throat, lips or tongue/angioedema latex Allergy Rash Verified 04/26/21 11:42 naproxen sodium [From Aleve] Allergy short of Verified 04/26/21 11:42 breath/wheezing/chest tightness mold/mildew Allergy sneezing/co Uncoded 04/26/21 11:42 ngestion Home Meds: Home Meds Aspirin [Adult Low Dose Aspirin EC] 81 mg PO DAILY 05/14/14 [History] Losartan Potassium 25 mg PO DAILY 02/23/21 [History] Medical Supply, Miscellaneous [Liqua Spen] 1 drop SL ASDIRECTED PRN 02/23/21 [History] Nitroglycerin [Nitrostat] 0.4 mg SL ASDIRECTED PRN 02/23/21 [History] NIFEdipine [Procardia XL] 30 mg PO BEDTIME 30 Days #30 tab.er 02/24/21 [Rx] Past Medical History HEENT History: Reports: None Cardiovascular History: Reports: Hypertension, PVD, Other (See Below) Other Cardiovascular History: Prinzmetal's angina, peripheral artery disease/atherosclerosis with stenting of right iliac artery Respiratory History: Reports: None Gastrointestinal History: Reports: None Genitourinary History: Reports: None 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: Musculoskeletal History: Reports: Arthritis, Back Pain, Chronic, Fibromyalgia Neurological History: Reports: None Psychiatric History: Reports: None Endocrine/Metabolic History: Reports: None Hematologic History: Reports: None Immunologic History: Reports: None Oncologic (Cancer) History: Reports: None Dermatologic History: Reports: None - Infectious Disease History Infectious Disease History: Reports: None - Past Surgical History Head Surgeries/Procedures: Reports: None Social & Family History - Family History Family Medical History: No Pertinent Family History Cardiac: Reports: VT, Other (See Below) Other Cardiac Family History: Dad at age 42. Brother has apacemaker. - Tobacco Use Tobacco Use Status *Q: Never Tobacco User - Caffeine Use Caffeine Use: Reports: Coffee - Recreational Drug Use Recreational Drug Use: Yes Drug Use in Last 12 Months: Yes Recreational Drug Type: Reports: Marijuana/Hashish ED ROS GENERAL - Review of Systems Review Of Systems: Comprehensive ROS is negative, except as noted in HPI. ED EXAM, GENERAL - Physical Exam Exam: See Below Exam Limited By: No Limitations General Appearance: Alert, Anxious, Thin Eye Exam: Bilateral Eye: EOMI, Normal Inspection, PERRL (3mm) Ears: Normal External Exam, Hearing Grossly Normal Nose: Normal Inspection, Normal Mucosa, No Blood Throat/Mouth: Normal Inspection, Normal Oropharynx, Normal Voice, No Airway Compromise Head: Atraumatic, Normocephalic Neck: Normal Inspection, Supple, Non-Tender, Full Range of Motion Respiratory/Chest: No Respiratory Distress, Lungs Clear, Normal Breath Sounds, No Accessory Muscle Use. No: Chest Non-Tender, Crackles, Rales, Rhonchi, Wheezing, Stridor Cardiovascular: Normal Peripheral Pulses, Regular Rate, Rhythm, No Edema, No Gallop, No JVD, No Murmur, No Rub Peripheral Pulses: 2+: Radial (L), Radial (R) GI/Abdominal: Normal Bowel Sounds, Soft, Non-Tender, No Distention, No Abnormal Bruit, No Mass, Pelvis Stable (Female) Exam: Deferred Rectal (Female) Exam: Deferred Back Exam: Normal Inspection, Full Range of Motion Extremities: Normal Inspection, Normal Range of Motion, Non-Tender, No Pedal Edema, Normal Capillary Refill Neurological: Alert, Oriented, CN II-XII Intact, Normal Cognition, Normal Gait, Normal Reflexes, No Motor/Sensory Deficits Psychiatric: Normal Affect, Normal Mood Skin Exam: Warm, Dry, Intact, Normal Color, No Rash. No: Cyanosis, Ecchymosis, Erythema, Jaundice, Mottled, Pallor, Petechiae #1 Interpretation EKG Date: 04/26/21 Time: 11:54 Rhythm: NSR Rate (Beats/Min): 69 [place]: Other (Borderline RAD, low voltage) P-Wave: Present QRS: Normal ST-T: Normal QT: Normal [place]/PQ Interval: 0.151 Comparison: Change From Previous EKG (No ST elevation in V1 or V2) EKG Interpretation Comments: NSR; Borderline RAD; No evidence of acute myocardial ischemia Course - Vital Signs Last Recorded V/S: Last Vital Signs Temp 97.1 F 04/26/21 11:43 Pulse 88 04/26/21 11:43 Resp 20 04/26/21 11:43 BP 183/90 H 04/26/21 11:43 Pulse Ox 99 04/26/21 11:43 - Orders/Labs/Meds Labs: Laboratory Tests 04/26/21 04/26/21 04/26/21 Range/Units 12:07 12:07 12:07 WBC 9.9 (5.0-10.0) 10^3/uL RBC 4.68 (4.2-5.4) 10^6/uL Hgb 14.2 (12.0-16.0) g/dL Hct 42.5 (37.0-47.0) % MCV 90.8 (80-100) fL MCH 30.3 (27.0-34.0) pg MCHC 33.4 (33.0-35.0) g/dL Plt Count 395 (150-450) 10^3/uL Neut % (Auto) 57.2 (42.2-75.2) % Lymph % (Auto) 30.4 (20.5-50.1) % Clinch % (Auto) 10.8 H (2-8) % Eos % (Auto) 1.0 (1.0-3.0) % Baso % (Auto) 0.6 (0.0-1.0) % Sodium 140 (136-145) mmol/L Potassium 3.8 (3.5-5.1) mmol/L Chloride 102 (98-107) mmol/L Carbon Dioxide 28 (21-32) mmol/L Anion Gap 13.8 H (7-13) mEq/L BUN 9 (7-18) mg/dL Creatinine 0.91 (0.55-1.02) mg/dL Est Cr Clr Drug Dosing 52.96 mL/min Estimated GFR (MDRD) > 60 BUN/Creatinine Ratio 9.9 (No establ ref range) Glucose 165 H (70-99) mg/dL Lactic Acid 2.0 (0.4-2.0) mmol/L Calcium 8.9 (8.5-10.1) mg/dL Magnesium 2.1 (1.8-2.4) mg/dL Total Bilirubin 0.3 (0.2-1.0) mg/dL AST 20 (15-37) U/L ALT 30 (14-59) U/L Alkaline Phosphatase 85 (46-116) U/L Troponin I High Sens 10 (<=51) pg/mL C-Reactive Protein < 0.2 (0.0-0.9) mg/dL Total Protein 6.6 (6.4-8.2) g/dL Albumin 3.5 (3.4-5.0) g/dL Globulin 3.1 Albumin/Globulin Ratio 1.1 Urine Color (YELLOW) Urine Appearance (CLEAR) Urine pH (5.0-9.0) Ur Specific [place] (1.005-1.030) Urine Protein (NEGATIVE) Urine Glucose (UA) (NEGATIVE) Urine Ketones (NEGATIVE) Urine Occult Blood (NEGATIVE) Urine Nitrite (NEGATIVE) Urine Bilirubin (NEGATIVE) Urine Urobilinogen (0.2-1.0) mg/dL Ur Leukocyte Esterase (NEGATIVE) Urine RBC /HPF Urine WBC (0-5/HPF) /HPF Ur Epithelial Cells (NOT SEEN) /HPF Urine Bacteria (0-FEW/HPF) /HPF Urine Opiates Screen (NEGATIVE) Ur Oxycodone Screen (NEGATIVE) Urine Methadone Screen (NEGATIVE) Ur Barbiturates Screen (NEGATIVE) U Tricyclic Antidepress (NEGATIVE) Ur Phencyclidine Scrn (NEGATIVE) Ur Amphetamine Screen (NEGATIVE) U Methamphetamines Scrn (NEGATIVE) Urine MDMA Screen (NEGATIVE) U Benzodiazepines Scrn (NEGATIVE) Urine Cocaine Screen (NEGATIVE) U Marijuana (THC) Screen (NEGATIVE) Ethyl Alcohol < 3 (0) mg/dL 04/26/21 04/26/21 Range/Units 13:02 13:02 WBC (5.0-10.0) 10^3/uL RBC (4.2-5.4) 10^6/uL Hgb (12.0-16.0) g/dL Hct (37.0-47.0) % MCV (80-100) fL MCH (27.0-34.0) pg MCHC (33.0-35.0) g/dL Plt Count (150-450) 10^3/uL Neut % (Auto) (42.2-75.2) % Lymph % (Auto) (20.5-50.1) % Clinch % (Auto) (2-8) % Eos % (Auto) (1.0-3.0) % Baso % (Auto) (0.0-1.0) % Sodium (136-145) mmol/L Potassium (3.5-5.1) mmol/L Chloride (98-107) mmol/L Carbon Dioxide (21-32) mmol/L Anion Gap (7-13) mEq/L BUN (7-18) mg/dL Creatinine (0.55-1.02) mg/dL Est Cr Clr Drug Dosing mL/min Estimated GFR (MDRD) BUN/Creatinine Ratio (No establ ref range) Glucose (70-99) mg/dL Lactic Acid (0.4-2.0) mmol/L Calcium (8.5-10.1) mg/dL Magnesium (1.8-2.4) mg/dL Total Bilirubin (0.2-1.0) mg/dL AST (15-37) U/L ALT (14-59) U/L Alkaline Phosphatase (46-116) U/L Troponin I High Sens (<=51) pg/mL C-Reactive Protein (0.0-0.9) mg/dL Total Protein (6.4-8.2) g/dL Albumin (3.4-5.0) g/dL Globulin Albumin/Globulin Ratio Urine Color Yellow (YELLOW) Urine Appearance Clear (CLEAR) Urine pH 7.0 (5.0-9.0) Ur Specific [place] 1.010 (1.005-1.030) Urine Protein Negative (NEGATIVE) Urine Glucose (UA) Negative (NEGATIVE) Urine Ketones Negative (NEGATIVE) Urine Occult Blood Trace-lysed H (NEGATIVE) Urine Nitrite Negative (NEGATIVE) Urine Bilirubin Negative (NEGATIVE) Urine Urobilinogen 0.2 (0.2-1.0) mg/dL Ur Leukocyte Esterase Negative (NEGATIVE) Urine RBC 0-5 /HPF Urine WBC Not seen (0-5/HPF) /HPF Ur Epithelial Cells Rare (NOT SEEN) /HPF Urine Bacteria Rare (0-FEW/HPF) /HPF Urine Opiates Screen Negative (NEGATIVE) Ur Oxycodone Screen Negative (NEGATIVE) Urine Methadone Screen Negative (NEGATIVE) Ur Barbiturates Screen Negative (NEGATIVE) U Tricyclic Antidepress Negative (NEGATIVE) Ur Phencyclidine Scrn Negative (NEGATIVE) Ur Amphetamine Screen Negative (NEGATIVE) U Methamphetamines Scrn Negative (NEGATIVE) Urine MDMA Screen Negative (NEGATIVE) U Benzodiazepines Scrn Negative (NEGATIVE) Urine Cocaine Screen Negative (NEGATIVE) U Marijuana (THC) Screen Negative (NEGATIVE) Ethyl Alcohol (0) mg/dL - Radiology Interpretation Free Text/Narrative:: [facility] Final Radiology Report Call: [phone] assistance Online chat: [email or web address] Name: MELINDA LANGFORD Age: 65Years F Date: 04/26/2021 SSN: -- : [id number] Study: CR CHEST 1V FRONTAL Requesting Physician: Lauren Flanagan Images: 1 Addl Studies: Provided Clinical History: Chest pain Contrast: Contrast Medium: Contrast Amount: Contrast Method: CONFIDENTIALITY STATEMENT This report is intended only for use by the referring physician, and only in accordance with law. If you received this in error, call [phone]. Page 1 of 1 PROCEDURE INFORMATION: Exam: XR Chest Exam date and time: 04/26/2021 12:03 PM Age: 65 years old Clinical indication: Chest wall pain; Additional info: Chest pain TECHNIQUE: Imaging protocol: XR of the chest. Views: 1 view. COMPARISON: CR Chest 1V Frontal 02/23/2021 11:06 AM FINDINGS: Lungs: Lungs are clear bilaterally. Pleural spaces: No pleural effusion. No pneumothorax. Heart/Mediastinum: The cardiac silhouette and mediastinal contours are unremarkable. Bones/joints: Unremarkable for age. IMPRESSION: No acute cardiopulmonary process. Thank you for allowing us to participate in the care of your patient. Dictated and Authenticated by: Lyndsay Negro MD 04/26/2021 12:58 PM Central Time ([place] & [place]) - Re-Assessments/Exams Free Text/Narrative Re-Assessment/Exam: 04/25/21 Findings of examination, imaging, EKG, and lab work reviewed with patient. 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 Red flag signs and symptoms which would warrant reevaluation reviewed. Patient and verbalized understanding and agreement with the plan of care. 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 2.) Drink plenty of water to stay hydrated. 3.) Rest, as able. Avoid overexertion. Sepsis Event Note (ED) - Evaluation Sepsis Screening Result: No Definite Risk
[2021-04-26 12:42] LABS: ANION GAP 13.8 mEq/L (7-13); CHLORIDE,CL 102 mmol/L (98-107); SODIUM,NA 140 mmol/L (136-145)
--- NOTE | 2021-04-26 12:58 | CR ---
PROCEDURE INFORMATION: Exam: XR Chest Exam date and time: 04/26/2021 12:03 PM Age: 65 years old Clinical indication: Chest wall pain; Additional info: Chest pain TECHNIQUE: Imaging protocol: XR of the chest. Views: 1 view. COMPARISON: CR Chest 1V Frontal 02/23/2021 11:06 AM FINDINGS: Lungs: Lungs are clear bilaterally. Pleural spaces: No pleural effusion. No pneumothorax. Heart/Mediastinum: The cardiac silhouette and mediastinal contours are unremarkable. Bones/joints: Unremarkable for age. IMPRESSION: No acute cardiopulmonary process.
== END 2021-04-26 13:51 | disposition home or self-care (01) ==
LOC: DL.ED 11:21
DX: R07.89 Other chest pain (principal); I10 Essential (primary) hypertension; Z79.82 Long term (current) use of aspirin; Z79.899 Other long term (current) drug therapy; Z88.1 Allergy status to other antibiotic agents; Z88.5 Allergy status to narcotic agent; Z91.040 Latex allergy status; Z91.048 Other nonmedicinal substance allergy status
CPT/HCPCS: 36415; 71045; 80053; 80305-QW; 80307; 81001; 83605; 83735; 84484; 85025; 86140; 93005; 93010; 99284; 99285-25

== ENCOUNTER 2023-02-02 11:19 | Observation (INO) | payer MEDICARE, BC ==
[2023-02-02] MEDS ORDERED: Sodium Chloride 0.9% 10 ML Syringe FLUSH PRN (11:44)
[2023-02-02 12:14] LABS: PTT,PARTIAL THROMBOPLSTIN TIME 23.6 SEC (22.0-34.0)
[2023-02-02] MEDS ORDERED: hydrALAZINE 20 MG/ML SDV IVPUSH ONE (12:17)
[2023-02-02 12:26] LABS: ANION GAP 16.6 mEq/L (7-13); CHLORIDE,CL 101 mmol/L (98-107); ESTIMATED GFR 77 mL/min (>=60); SODIUM,NA 139 mmol/L (136-145)
[2023-02-02] MEDS: Gadobenate Dimeglumine 529 MG/ML 15 ML SDV IVPUSH ONE ×2 (14:27→14:31)
[2023-02-02] MEDS ORDERED: Temazepam 15 MG Cap PO PRN (15:15)
[2023-02-02] MEDS ORDERED: Acetaminophen 325 MG Tab PO PRN (15:15)
[2023-02-02] MEDS ORDERED: Docusate Sodium 100 MG Cap PO PRN (15:15)
[2023-02-02] MEDS ORDERED: Ondansetron 4 MG Tab.DIS PO PRN (15:15)
[2023-02-02] MEDS ORDERED: Acetaminophen/HYDROcodone 325-5 MG Tab PO PRN (15:15)
[2023-02-02] MEDS ORDERED: Morphine 2 MG/ML SYRINGE IVPUSH PRN (15:15)
[2023-02-02] MEDS ORDERED: Nitroglycerin 0.4 MG Tab.SL SL PRN (15:21)
[2023-02-02] MEDS ORDERED: hydrALAZINE 25 MG Tab PO SCH (15:30)
[2023-02-02] MEDS: Clopidogrel 75 MG Tab PO SCH (16:50)
[2023-02-02] MEDS: Sodium Chloride 0.9% 1,000 ML IV SCH (16:50)
[2023-02-02] MEDS ORDERED: Pravastatin 20 MG Tab PO SCH (21:00)
[2023-02-02] MEDS ORDERED: Amitriptyline 25 MG Tab PO SCH (21:00)
[2023-02-03] MEDS: hydrALAZINE 25 MG Tab PO SCH ×2 (00:21→08:22)
[2023-02-03] MEDS: Sodium Chloride 0.9% 1,000 ML IV SCH (00:25)
[2023-02-03 05:57] LABS: ANION GAP 11.3 mEq/L (7-13)
[2023-02-03] MEDS: Clopidogrel 75 MG Tab PO SCH (08:23)
[2023-02-03 08:28] VITALS: BP 136/68; PULSE 71
[2023-02-03] MEDS ORDERED: Cyanocobalamin (Vitamin B12) 1,000 MCG Tab PO SCH (09:00)
[2023-02-03] MEDS ORDERED: Multivitamin Tab PO SCH (09:00)
[2023-02-03] MEDS ORDERED: Aspirin 81 MG Tab.EC PO SCH (09:00)
[2023-02-03] MEDS ORDERED: Vitamin B Complex Cap PO SCH (09:00)
[2023-02-03] MEDS ORDERED: Diltiazem 120 MG Cap.CD PO SCH (09:00)
[2023-02-03] MEDS ORDERED: Enoxaparin 40 MG/0.4 ML Syringe SUBCUT SCH (09:00)
== END 2023-02-03 10:45 | disposition home or self-care (01) ==
LOC: DL.ED 11:19 → DL.MS 14:46
PROVIDERS: ADMIT Internal Medicine; ATTEND Internal Medicine
DX: G45.9 Transient cerebral ischemic attack, unspecified (principal); I16.1 Hypertensive emergency; I25.10 Atherosclerotic heart disease of native coronary artery without angina pectoris; I73.9 Peripheral vascular disease, unspecified; I10 Essential (primary) hypertension; Z87.891 Personal history of nicotine dependence; Z88.1 Allergy status to other antibiotic agents; Z91.040 Latex allergy status; Z88.8 Allergy status to other drugs, medicaments and biological substances; Z91.048 Other nonmedicinal substance allergy status; Z98.890 Other specified postprocedural states; Z79.899 Other long term (current) drug therapy
CPT/HCPCS: 36415; 70450; 70544; 70553; 80048; 80053; 81003; 82947; 83735; 84443; 84484; 85025; 85610; 85730; 86140; 93005; 93010; 96361; 96374; 99285; 99285-25; A9270-GY; A9577; G0378; J0360; J3490; J7030